=== PATIENT | male | born 1985 | race Caucasian/White ===

== ENCOUNTER 2017-03-30 23:57 | Emergency (ER) | payer MEDICAID ==
[2017-03-31 00:05] VITALS: BP 137/78; RESP 18; O2SAT 100; BMI 26.6
--- NOTE | 2017-03-31 00:36 | ED PDOC ---
Arrival/HPI - General Historian: Patient <John Garrido - Last Filed: 03/31/17 02:25> <Martin Linder - Last Filed: 03/31/17 04:28> - General Chief Complaint: Flu-like Symptoms Time Seen by Provider: 03/31/17 00:00 - History of Present Illness Narrative History of Present Illness (Text): 03/31/17 02:25 32 y/o male, no significant pmh, nkda, c/o coughing with diarrhea/abdominal pain on and off x 3 weeks with no recent traveling. Dry coughing, no chest pain or shortness of breath, stated that the stool has been soft, no recent antibiotic use for the past 6 weeks, no headache or neck pain, no palpitation, no chest pain or shortness of breath. (John Garrido) Past Medical History - Provider Review Nursing Documentation Reviewed: Yes - Psychiatric Hx Substance Use: No - Surgical History Hx Appendectomy: Yes <John Garrido - Last Filed: 03/31/17 02:25> Family/Social History - Physician Review Nursing Documentation Reviewed: Yes Family/Social History: Unknown Family HX Smoking Status: Never Smoked Hx Alcohol Use: No Hx Substance Use: No <John Garrido - Last Filed: 03/31/17 02:25> Allergies/Home Meds <John Garrido - Last Filed: 03/31/17 02:25> <Martin Linder - Last Filed: 03/31/17 04:28> Allergies/Adverse Reactions: Allergies No Known Allergies Allergy (Verified 03/31/17 00:06) Review of Systems - Review of Systems Constitutional: absent: Fatigue, Fevers Eyes: absent: Vision Changes ENT: absent: Hearing Changes Respiratory: Cough. absent: SOB, Sputum, Wheezing Cardiovascular: absent: Chest Pain Gastrointestinal: Abdominal Pain, Diarrhea. absent: Nausea, Vomiting Musculoskeletal: absent: Arthralgias, Back Pain Skin: absent: Rash, Pruritis, Skin Lesions, Laceration, Abscess Neurological: absent: Headache, Dizziness, Focal Weakness, Gait Changes <John Garrido - Last Filed: 03/31/17 02:25> Physical Exam Vital Signs Reviewed: Yes Temperature: Afebrile Blood Pressure: Normal Pulse: Regular Respiratory Rate: Normal Appearance: Positive for: Well-Appearing, Non-Toxic, Comfortable Pain Distress: Mild Mental Status: Positive for: Alert and Oriented X 3 - Systems Exam Head: Present: Atraumatic, Normocephalic Pupils: Present: PERRL Extroacular Muscles: Present: EOMI Conjunctiva: Present: Normal Mouth: Present: Moist Mucous Membranes Neck: Present: Normal Range of Motion Respiratory/Chest: Present: Clear to Auscultation, Good Air Exchange. No: Respiratory Distress, Accessory Muscle Use, Wheezes, Decreased Breath Sounds, Rales, Retracting, Rhonchi Cardiovascular: Present: Regular Rate and Rhythm, Normal S1, S2. No: Murmurs Abdomen: Present: Tenderness (mild generalized tenderness), Normal Bowel Sounds. No: Distention, Peritoneal Signs, Rebound, Guarding Back: Present: Normal Inspection Upper Extremity: Present: Normal Inspection. No: Cyanosis, Edema Lower Extremity: Present: Normal Inspection. No: Edema Neurological: Present: GCS=15, Speech Normal, Motor Func Grossly Intact, Gait Normal, Memory Normal Skin: Present: Warm, Dry, Normal Color. No: Rashes Psychiatric: Present: Alert, Oriented x 3, Normal Insight, Normal Concentration <John Garrido - Last Filed: 03/31/17 02:25> Medical Decision Making - Lab Interpretations I have reviewed the lab results: Yes Interpretation: Abnormal lab values (wbc 14.2, hematuria) - Transfer of Care Patient signed out to Dr:: Niyah <John Garrido - Last Filed: 03/31/17 02:25> - RAD Interpretation Personal Lines Sales Executive: ED Physician, Radiologist <Martin Linder - Last Filed: 03/31/17 04:28> ED Course and Treatment: 03/31/17 02:05 -labs/ua -CT abdomen and pelvis -Chest x-ray -IVF/pepcid -observe and reassess 03/31/17 02:27 -Labs are non-significant except wbc 14.2 -UA show no UTI but mild hematuria -Pending chest x-ray and CT abdomen/pelvis -Case discussed and sign out to Dr. Linder for follow up. (John Garrido) 03/31/17 02:39 Reviewed radiology, CT Abdomen and Pelvis shows: Constipation, with no wall thickening to support colitis. Mild prominence of the right ureter, with no obstructing calculus. CXR shows no acute processes. 03/31/17 04:28 On reevaluation the patient feels better and is in no acute distress. I have discussed the results and plan with the patient, who expresses understanding. Patient given the opportunity to ask question, all questions were answered and there is agreement with the plan to discharge the patient home. Patient is stable for discharge. Patient was instructed to follow up with physician/clinic in 1-2 days or return if symptoms persist/worsen or new concerning symptoms arise. (Martin Linder) - Lab Interpretations Lab Results: 03/31/17 00:55 03/31/17 00:55 Lab Results 03/31/17 00:55: Sodium 136, Potassium 3.7, Chloride 100, Carbon Dioxide 27, Anion Gap 13, BUN 13, Creatinine 0.9, Est GFR ( Amer) > 60, Est GFR (Non- Af Amer) > 60, Random Glucose 89, Calcium 9.5, Magnesium 1.5 L, Total Bilirubin 0.9, AST 29, ALT 20, Alkaline Phosphatase 52, Total Protein 8.5 H, Albumin 4.5, Globulin 4.0, Albumin/Globulin Ratio 1.1 03/31/17 00:55: WBC 14.2 H, RBC 4.18, Hgb 13.9 L, Hct 39.5 L, MCV 94.5, MCH 33.3 , MCHC 35.2, RDW 12.2, Plt Count 275, MPV 9.0, Gran % 77.4 H, Lymph % (Auto) 15.4 L, Lake % (Auto) 6.5 H, Eos % (Auto) 0.6 L, Baso % (Auto) 0.1, Gran # 10.99 H, Lymph # 2.2, Lake # 0.9 H, Eos # 0.1, Baso # 0.02 03/31/17 00:54: Urine Color Yellow, Urine Appearance Sl cloudy, Urine pH 6.5, Ur Specific [place] 1.015, Urine Protein Negative, Urine Glucose (UA) Negative, Urine Ketones Negative, Urine Blood Moderate H, Urine Nitrate Negative, Urine Bilirubin Negative, Urine Urobilinogen 0.2, Ur Leukocyte Esterase Negative, Urine RBC 2 - 5, Urine WBC 0 - 2, Ur Epithelial Cells 0 - 2 - RAD Interpretation Narrative RAD Interpretations (Text): CT Abdomen and Pelvis shows: Abdomen pelvis: Liver, gallbladder, spleen, pancreas, both adrenals and left kidney are normal. There is mild prominence of the right ureter, with no obstructing calculus. The urinary bladder is unremarkable. Prior appendectomy. No bowel obstruction. Moderate fecal retention. No free fluid or free air. IMPRESSION: Constipation, with no wall thickening to support colitis. Mild prominence of the right ureter, with no obstructing calculus. (Martin Linder) Radiology Orders: 03/31/17 00:36 ABDOMEN & PELVIS [ABD & PELVIS IV CONTRAST ONLY] [CT] Stat CHEST PORTABLE [RAD] Stat - Medication Orders Current Medication Orders: Discontinued Medications Famotidine (Pepcid) 20 mg IVP STAT STA Stop: 03/31/17 00:38 Last Admin: 03/31/17 01:03 Dose: 20 mg Sodium Chloride (Sodium Chloride 0.9%) 1,000 mls @ 999 mls/hr IV .Q1H1M STA Stop: 03/31/17 01:36 Last Admin: 03/31/17 02:26 Dose: 999 mls/hr Iohexol (Omnipaque 350 100 Ml) Confirm Administered Dose 350 mg .ROUTE .STK-MED ONE Stop: 03/31/17 01:42 - PA / [employer]CHANDISER / Resident Statement LETA has reviewed & agrees with the documentation as recorded. <John Garrido - Last Filed: 03/31/17 02:25> - PA / [employer] FI[employer] MERCHANDISER / Resident Statement LETA has reviewed & agrees with the documentation as recorded. LETA has examined the patient and agrees with the treatment plan. <Martin Linder - Last Filed: 03/31/17 04:28> Disposition/Present on Arrival - Present on Arrival Any Indicators Present on Arrival: No History of DVT/PE: No History of Uncontrolled Diabetes: No Urinary Catheter: No History of Decub. Ulcer: No History Surgical Site Infection Following: None - Disposition Have Diagnosis and Disposition been Completed?: Yes Disposition Time: 02:28 <John Garrido - Last Filed: 03/31/17 02:25> - Present on Arrival Any Indicators Present on Arrival: No - Disposition Have Diagnosis and Disposition been Completed?: Yes Patient Plan: Discharge <Martin Linder - Last Filed: 03/31/17 04:28> - Disposition Diagnosis: Bronchitis, Hematuria Disposition: HOME/ ROUTINE Patient Problems: Current Active Problems Problem Status Onset Bronchitis Acute Hematuria Acute Condition: STABLE Discharge Instructions (ExitCare): Acute Bronchitis (ED), Acute Hematuria (ED) Additional Instructions: Drink plenty of liquids/take meds as prescribed/follow up with your doctor / urologist this week Prescriptions: Azithromycin [Zithromax] 250 mg PO DAILY #6 tab Referrals: Junior Jarvis MD [Staff Provider] - Follow up with primary
[2017-03-31 01:02] LABS: ADD MANUAL DIFF? NO
[2017-03-31] MEDS: Sodium Chloride 0.9% 1,000 ML IV STA ×2 (01:03→02:26)
[2017-03-31 01:06] LABS: PH,URINE 6.5 (4.7-8.0); URINE BILIRUBIN NEGATIVE (NEGATIVE); URINE BLOOD MODERATE (NEGATIVE); URINE GLUCOSE (UA) NEGATIVE (NEGATIVE); URINE KETONE NEGATIVE (NEGATIVE); URINE LEUKOCYTE ESTERASE NEGATIVE Leu/uL (NEGATIVE); URINE PROTEIN NEGATIVE mg/dL (<30 mg/dL); URINE UROBILINOGEN 0.2 E.U./dL (<1 E.U./dL)
[2017-03-31 01:14] LABS: URINE APPEARANCE SL CLOUDY (CLEAR); URINE COLOR YELLOW (YELLOW)
[2017-03-31 01:17] LABS: BASO # 0.02 K/mm3 (0.0-2.0); BASO % 0.1 % (0.0-3.0); EOS # 0.1 (0.0-0.7); EOS % 0.6 % (1.5-5.0); GRAN # 10.99 (1.4-6.5); GRAN % 77.4 % (50.0-68.0); HEMATOCRIT 39.5 % (42.0-52.0); LYMPH # 2.2 (1.2-3.4); LYMPH % 15.4 % (22.0-35.0); MEAN CELL VOLUME 94.5 fL (80.0-105.0); MEAN CORPUSCULAR HEMOGLOBIN 33.3 pg (25.0-35.0); MEAN CORPUSCULAR HGB CONC 35.2 g/dl (31.0-37.0); MONO # 0.9 (0.1-0.6); MONO % 6.5 % (1.0-6.0); PLATELET COUNT 275 10^3/uL (120.0-450.0); RED CELL DISTRIBUTION WIDTH 12.2 % (11.5-14.5); WHITE BLOOD COUNT 14.2 10^3/ul (4.5-11.0)
[2017-03-31 01:21] LABS: URINE EPITHELIAL CELLS 0 - 2 /hpf (0-5); URINE WBC 0 - 2 /hpf (0-6)
[2017-03-31 01:24] LABS: ALB/GLOB RATIO 1.1 (1.1-1.8); ALKALINE PHOSPHATASE 52 U/L (38-133); ALT/SGPT 20 U/L (7-56); AST/SGOT 29 U/L (15-59); BILIRUBIN,TOTAL 0.9 mg/dL (0.2-1.3); BLOOD UREA NITROGEN 13 mg/dL (7-21); CALCIUM 9.5 mg/dL (8.4-10.5); CARBON DIOXIDE 27 mmol/L (21-33); CHLORIDE 100 mmol/L (98-107); GFR AFRICAN-AMERICAN > 60; GLUCOSE,RANDOM 89 mg/dL (70-110); MAGNESIUM 1.5 mg/dL (1.7-2.2); POTASSIUM 3.7 mmol/L (3.6-5.0); SODIUM 136 mmol/L (132-148); TOTAL PROTEIN 8.5 g/dL (5.8-8.3)
[2017-03-31] MEDS ORDERED: Iohexol 350 MG/100 ML VIAL ONE (01:41)
[2017-03-31 04:35] VITALS: PULSE 85; TEMP 100
--- NOTE | 2017-03-31 07:15 | RAD ---
HISTORY: cough x 3 weeks COMPARISON: No prior. FINDINGS: LUNGS: No active pulmonary disease. PLEURA: No significant pleural effusion identified, no pneumothorax apparent. CARDIOVASCULAR: Normal. OSSEOUS STRUCTURES: No significant abnormalities. VISUALIZED UPPER ABDOMEN: Normal. OTHER FINDINGS: None. IMPRESSION: No active disease.
--- NOTE | 2017-03-31 11:00 | CT ---
PROCEDURE: CT Abdomen and Pelvis with contrast HISTORY: on and off diarrhea x 3 weeks? COMPARISON: None. TECHNIQUE: Contrast dose: 100 cc of Omni 350 Radiation dose: Total exam DLP = 340 mGy-cm. This CT exam was performed using one or more of the following dose reduction techniques: Automated exposure control, adjustment of the mA and/or kV according to patient size, and/or use of iterative reconstruction technique. FINDINGS: LOWER THORAX: Unremarkable. LIVER: Unremarkable. No gross lesion or ductal dilatation. GALLBLADDER AND BILE DUCTS: Unremarkable. PANCREAS: Unremarkable. No gross lesion or ductal dilatation. SPLEEN: Unremarkable. ADRENALS: Unremarkable. No mass. KIDNEYS AND URETERS: Unremarkable. No hydronephrosis. No solid mass. VASCULATURE: Unremarkable. No aortic aneurysm. BOWEL: Unremarkable. No obstruction. No gross mural thickening. Mild constipation APPENDIX: Appendix removed PERITONEUM: Unremarkable. No free fluid. No free air. LYMPH NODES: Unremarkable. No enlarged lymph nodes. BLADDER: Unremarkable. REPRODUCTIVE: Unremarkable. BONES: No acute fracture. OTHER FINDINGS: The report concurs with the preliminary [facility] report IMPRESSION: Unremarkable contrast enhanced CT of the abdomen and pelvis.
== END 2017-03-31 04:44 | disposition home or self-care (01) ==
LOC: ED 23:57
DX: J40 Bronchitis, not specified as acute or chronic (principal); R31.9 Hematuria, unspecified
CPT/HCPCS: 71010; 74177; 80053; 81001; 83735; 85025; 96361; 96374; 99284; J7040; Q9967